=== PATIENT | male | born 1995 | race Caucasian/White ===

== ENCOUNTER → 2017-10-05 | Outpatient (CLI) | payer OTHER ==
[~2017-10-05] VITALS: Ht 170.2 cm; Wt 106.0 kg
[2017-10-05 15:33] VITALS: BP 135/81; PULSE 99; Ht 170.2 cm; Wt 106.0 kg
== END | disposition home or self-care (01) ==
LOC: C.NEUR 15:10
PROVIDERS: ATTEND Internal Medicine Pulmonary Disease
DX: R06.83 Snoring (principal); J34.2 Deviated nasal septum; R06.81 Apnea, not elsewhere classified

== ENCOUNTER → 2017-10-21 | Outpatient (CLI) | payer OTHER ==
--- NOTE | 2017-10-22 06:28 | PAP/PSG TECHNICIAN REPORT ---
[facility] [employer] Drawer Polysomnogram Report Study name: None Report date: 10/22/2017 Study date: 10/21/2017 Referring Physician: DR. CANO Name: JOLENE CURTIS Interpreting Physician: Efe Cano M.D. Date of : 1995 [employer] Drawer: Lucas Mackenzie RPSABBY. Sex: Male Age: 22 StudyType: PSG Weight: 233 lbs Height: 22 years, Height 5' 7" BMI: 36.49 Medications: NONE LISTED Patient History PATIENT HAS HSTORY OF DAYTIME SLEEPINESS, SNORING AND WITNESSED APNEAS. HE IS HERE FOR AN EVALUATION FOR PAULETTE. ESS = 6 RM 6 Parameters Monitored NPSG: E1-M2, E2-M1, Fp1-M2, Fp2-M1, F3-M2, F4-M2, F4-M1, C3-M2, C4-M2, C4-M1, O1-M2, O2-M2, O2-M1, T3-M2, T4-M1, P3-M2, P4-M1, CHIN1, CHIN2, HR, EKG, Legs, PFLOW, SNOR, FLOW, CFLOW, Tidal Volume, THOR, ABDO, SpO2, PLTH, CPRESS, ETCO2 Wave, ETCO2, pH Sleep Architecture Sleep Stages Time at Lights Off 10:36:55 PM STAGES Time (min.) TST (%) Time at Lights On 5:32:25 AM Wake 68.0 -- Total Recording Time (TRT) 416.00 min. N1 11.5 3 Total Sleep Period (TSP) 358.5 min. N2 202.0 58 Total Sleep Time (TST) 347.5min. N3 60.0 17 Awake Time 68.0 min. REM 74.0 21 Wake after Sleep Onset 11.0 min. Sleep Efficiency (SE) 84 % Sleep Onset Latency (KELSEY) 57.0 min. Number of Stage 1 Shifts None Awakenings 14 Stage Changes 56 Number of REM periods 2 REM 74.0 21 REM Latency 204.5 min. NREM 273.5 79 Body Position Analysis Supine Right Left Side Prone Vertical Total Sleep Time (min.) 239.7 74.8 96.9 171.69 0.0 0.0 Total Sleep Time (%) 51% 22% 28% 49 0% N/A% Total Sleep Time REM (min.) 31.0 0.0 43.0 None 0.0 0.0 Total Sleep Time NREM (min.) 144.8 74.8 53.9 None 0.0 0.0 Intermittent Wake (min.) 63.9 3.5 0.6 None 0.0 0.0 Total Sleep Period (%) 51% None None None None None Arousals Myoclonus (PLM) * Events Count Index Events Count Index Spontaneous 20 3 Events Awake (PLMW) 74 65.3 Respiratory 14 2.8 Events Asleep w/ Arousal (PLMA) 8 1.4 PLM 7 1 Events Asleep w/o Arousal (PLMS) 107 18.5 Snoring 0 0 Total Asleep 115 19.9 Total 41 7 Total 189 27 Respiratory Analysis * CA OA MA CH H RERA Total Count 0 68 0 0 187 1 255 Index 0.0 11.7 0.0 0 32.3 0 44.2 Mean Duration 0.0 29.3 0.0 0.00 24.2 15.3 25.5 Longest Duration 0.0 60.6 0.0 0.00 0.0 15.3 60.6 Respiratory Event Summary Total Supine ~Supine Right Left Prone REM NREM Apneas Count 68 20 48 0 48 N/A 49 19 Index 11.7 7 17 0.0 29.7 N/A 40 4 Hypopneas (4% Desat) Count 187 133 54 18 36 N/A 28 159 Index 32.3 45.4 19 14.4 22.3 N/A 22.7 34.9 Apneas & All Hypopneas Count 255 153 102 18 84 N/A 77 178 Index 44.0 52 36 14 52 N/A 62.4 39.0 Respiratory Events (Gas Fitter Apprentice+All Hyp+RERA) Count 255 153 103 19 84 N/A 77 178 Index 44.2 52 36 15.2 52.0 N/A 62.4 39.3 Respiratory Related Arousal Count 14 153 5 0 5 N/A 4 12 Index 2.8 4 2 0 3 N/A 3 3 Snoring Analysis Supine Right Left Prone REM NREM Total Snore duration 4.0 min Snores count 38 102 69 N/A 31 178 209 Snore mean duration 1.1 Sec Snores index 13 82 43 N/A 25.1 39.0 36.1 TST with snoring (%) 1.1% Desaturation Event Summary: Minimum %SpO2 Event Count Mean/Min/Max Duration(sec.) Desaturation Index % Time In Bed > 90 260 29.0 / 7.3 / 64.8 50.5 75.2 86 - 90 18 28.5 / 7.8 / 58.3 14.4 18.2 81 - 85 2 17.6 / 7.8 / 27.5 5.3 5.5 76 - 80 0 N/A 0.0 1.0 71 - 75 0 N/A 0.0 0.2 66 - 70 0 N/A 0.0 0.0 61 - 65 0 N/A 0.0 0.0 56 - 60 0 N/A 0.0 0.0 51 - 55 0 N/A 0.0 0.0 < 50 0 N/A 0.0 0.0 Total REM NREM Awake <50% 0.0 min. 0.0 min. 0.0 min. 0.0 min. 51 - 60% 0.0 min. 0.0 min. 0.0 min. 0.0 min. 61 - 70% 0.1 min. 0.1 min. 0.0 min. 0.0 min. 71 - 80% 4.7 min. 3.5 min. 1.0 min. 0.2 min. 81 - 90% 97.3 min. 24.1 min. 71.4 min. 1.8 min. 91 - 100% 309.2 min. 45.5 min. 199.7 min. 64.0 min. Average 92 91 92 95 Minimum SpO2 70 70 77 73 Desaturation Event Index 38.8 62.4 40.6 6.2 # Desat. Events below 89% 145 54 88 3 Time(%) with Saturation below 89% 15.6 4.6 10.7 0.3 Time(min.) with Saturation below 89% 64.0 18.8 44.0 1.2 Time (mins) REM (mins) NREM (mins) % of TST SpO2 Below 90% 211 68 N143 22.9 SpO2 Below 88% 71 0 0 15 Heart Rate Analysis Min (bpm) Max (bpm) Average (bpm) Awake 42 145 83 NREM 32 127 72 REM 51 127 67 Overall 32 127 71 Supplemental O2 Values Minimum O2 level: None Value Start Time End Time [employer] Drawer Comments Mr. Curtis slept in the right, left, supine and prone positions. No cardiac arrhythmia noted. Leg movements noted. No bruxism noted. Snoring was noted and scored as a 4 on a scale of 1 through 5. (0=no snoring, 5=snoring loud enough to be heard through a closed door or down the [address]) Mr. Curtis awoke to use the restroom 0 times during the night. Mr. Curtis stated I did not sleep as well as I do when I am in my own bed. The patient elected not to try CPAP at this time. The final report will be interpreted and signed by a sleep physician. The completed physician report will then be placed in the patient medical record. Therapy (cm H2O) 0 TIB (min.) 415.5 TST (min.) 347.5 Sleep Onset (min.) 57.0 REM Onset From Sleep (min.) 204.5 Sleep Efficiency % 84 Wakefulness (%) 16 Wakefulness (min.) 68.0 NREM 1 (%) 3 NREM 1 (min.) 11.5 NREM 2 (%) 58 NREM 2 (min.) 202.0 NREM 3 (%) 17 NREM 3 (min.) 60.0 REM (%) 21 REM (min.) 74.0 # Arousals 41 Arousal Index 7 # Snore 209 Snore Index 36.1 AHI 44.0 AHI Supine 52 AHI Non-Supine 36 NREM AHI 39.0 REM AHI 62.4 RDI 44.2 # Obstructive Apnea 68 # Central Apnea 0 # Mixed Apnea 0 # Hypopneas 187 RERAs 1 Total Respiratory Events 257 Time Below SpO2 89% (min.) 62.8 Mean NREM SpO2 (%) 92 Mean REM SpO2 (%) 91 Mean Sleep SpO2 (%) 92 Min NREM SpO2 (%) 77 Min REM SpO2 (%) 70 Position Supine (min.) 239.7 Position Non-supine (min.) 171.7 LM Index Sleep 19.9 LM Index NREM 10.3 LM Index REM 55.1 Mean Heart Rate (bpm) 71 Min Heart Rate (bpm) 32
--- NOTE | 2017-10-22 19:18 | POLYSOMNOGRAPH REPORT ---
CLINICAL DATA: A 22-year-old male with a BMI of 36.5, referred by myself, Dr. Arora and Dr. Otero for possible sleep apnea. He has had loud snoring and witnessed apnea. His [place] sleepiness score was 6/24. SLEEP ARCHITECTURE: Total sleep period was 358.5 minutes. Total sleep time was 347.5 minutes divided between 273.5 minutes of non-REM sleep and 74 minutes of REM sleep. Sleep onset latency was delayed at 57 minutes. REM latency was delayed at 204.5 minutes. Sleep efficiency was 84%. Wake after sleep onset was 11 minutes. Sleep consisted of stage N1 3%, stage N2 58%, stage N3 17%, and REM 21%. AROUSAL DATA: Forty one arousals were recorded for an index of 7 per hour. Fourteen were due to respiratory events. PERIODIC LIMB MOVEMENT DATA: Mildly elevated limb movements during sleep were noted. There were 152 limb movements during sleep noted for an index of 20 per hour with arousal index of 1.4 per hour. RESPIRATORY DATA: Severe sleep apnea was documented. The AHI was 44. There were 68 obstructive apneic episodes, the longest duration of which was 60.6 seconds. There were 187 hypopneic episodes with the mean duration of 24.2 seconds. OXIMETRY DATA: Nocturnal hypoxemia was seen. Oxygen lennox was 78% during REM. The mean saturation was 92%. Time below 88% was 71 minutes. ECHOCARDIOGRAM: Heart rates ranged from 32-127 beats per minute. No arrhythmias were noted. MEDICAL CONCIERGE'S COMMENTS: The patient slept in the right, left, supine, and prone positions. Snoring was loud, rated 4 on a scale of 1 through 5. The patient elected not to consider CPAP. IMPRESSION: Severe sleep apnea/hypopnea with an apnea/hypopnea index of 44 and a respiratory disturbance index of 44.2 with nocturnal hypoxemia. RECOMMENDATIONS: The patient will be considered for a repeat sleep study with CPAP or use of auto CPAP. Clinical correlation is needed. DUANE
== END | disposition home or self-care (01) ==
LOC: C.NEUR 20:00
PROVIDERS: ATTEND Internal Medicine Pulmonary Disease
DX: G47.30 Sleep apnea, unspecified (principal)

== ENCOUNTER → 2017-11-08 | Outpatient (CLI) | payer OTHER ==
--- NOTE | 2017-11-09 08:13 | PAP/PSG TECHNICIAN REPORT ---
[facility] Creative Director Polysomnogram Report Study name: None Report date: 11/09/2017 Study date: 11/08/2017 Referring Physician: DR. CANO Name: JOLENE CURTIS Interpreting Physician: Efe Cano M.D. Date of : 1995 Creative Director: Ching Cabrera, PSGT. Sex: Male Age: 22 StudyType: PSG Weight: 236 lbs Height: 22 years, Height 5' 7" Neck Circum:17 inches BMI: 36.96 Medications: NO REPORTED MEDICATIONS. Patient History 22-year-old male here for a titration study. Ahi =44.2. Parameters Monitored NPSG: E1-M2, E2-M1, Fp1-M2, Fp2-M1, F3-M2, F4-M2, F4-M1, C3-M2, C4-M2, C4-M1, O1-M2, O2-M2, O2-M1, T3-M2, T4-M1, P3-M2, P4-M1, CHIN1, CHIN2, HR, EKG, Legs, PFLOW, SNOR, FLOW, CFLOW, Tidal Volume, THOR, ABDO, SpO2, PLTH, CPRESS, ETCO2 Wave, ETCO2, pH Sleep Architecture Sleep Stages Time at Lights Off 10:35:38 PM STAGES Time (min.) TST (%) Time at Lights On 5:00:08 AM Wake 36.5 -- Total Recording Time (TRT) 385.00 min. N1 9.0 3 Total Sleep Period (TSP) 362.5 min. N2 144.0 41 Total Sleep Time (TST) 348.0min. N3 82.0 24 Awake Time 37.0 min. REM 113.0 32 Wake after Sleep Onset 14.5 min. Sleep Efficiency (SE) 91 % Sleep Onset Latency (KELSEY) 22.0 min. Number of Stage 1 Shifts None Awakenings 3 Stage Changes 23 Number of REM periods 4 REM 113.0 32 REM Latency 73.5 min. NREM 235.0 68 Body Position Analysis Supine Right Left Side Prone Vertical Total Sleep Time (min.) 120.5 165.1 82.5 247.63 0.0 4.2 Total Sleep Time (%) 29% 47% 24% 71 0% N/A% Total Sleep Time REM (min.) 42.0 47.5 23.5 None 0.0 0.0 Total Sleep Time NREM (min.) 58.4 117.6 59.0 None 0.0 0.0 Intermittent Wake (min.) 20.2 12.2 0.0 None 0.0 4.2 Total Sleep Period (%) 31% None None None None None Arousals Myoclonus (PLM) * Events Count Index Events Count Index Spontaneous 38 7 Events Awake (PLMW) 0 0.0 Respiratory 11 1.9 Events Asleep w/ Arousal (PLMA) 1 0.2 PLM 1 0 Events Asleep w/o Arousal (PLMS) 57 9.8 Snoring 0 0 Total Asleep 58 10.0 Total 50 9 Total 58 9 Respiratory Analysis * CA OA MA CH H RERA Total Count 2 2 0 0 20 0 24 Index 0.3 0.3 0.0 0 3.4 0 4.1 Mean Duration 24.2 19.0 0.0 0.00 16.8 0.0 17.6 Longest Duration 28.9 21.1 0.0 0.00 0.0 0.0 28.9 Respiratory Event Summary Total Supine ~Supine Right Left Prone REM NREM Apneas Count 4 3 1 1 0 N/A 0 4 Index 0.7 2 0 0.4 0.0 N/A 0 1 Hypopneas (4% Desat) Count 20 16 4 2 2 N/A 2 18 Index 3.4 9.6 1 0.7 1.5 N/A 1.1 4.6 Apneas & All Hypopneas Count 24 19 5 3 2 N/A 2 22 Index 4.1 11 1 1 1 N/A 1.1 5.6 Respiratory Events (Business Development Manager+All Hyp+RERA) Count 24 19 5 3 2 N/A 2 22 Index 4.1 11 1 1.1 1.5 N/A 1.1 5.6 Respiratory Related Arousal Count 11 19 3 1 2 N/A 1 10 Index 1.9 5 1 0 1 N/A 1 3 Snoring Analysis Supine Right Left Prone REM NREM Total Snore duration 0.3 min Snores count 4 1 2 N/A 2 5 7 Snore mean duration 2.3 Sec Snores index 2 0 1 N/A 1.1 1.3 1.2 TST with snoring (%) 0.1% Desaturation Event Summary: Minimum %SpO2 Event Count Mean/Min/Max Duration(sec.) Desaturation Index % Time In Bed > 90 37 26.8 / 13.3 / 58.5 5.9 98.9 86 - 90 0 N/A 0.0 1.1 81 - 85 0 N/A 0.0 0.0 76 - 80 0 N/A 0.0 0.0 71 - 75 0 N/A 0.0 0.0 66 - 70 0 N/A 0.0 0.0 61 - 65 0 N/A 0.0 0.0 56 - 60 0 N/A 0.0 0.0 51 - 55 0 N/A 0.0 0.0 < 50 0 N/A 0.0 0.0 Total REM NREM Awake <50% 0.0 min. 0.0 min. 0.0 min. 0.0 min. 51 - 60% 0.0 min. 0.0 min. 0.0 min. 0.0 min. 61 - 70% 0.0 min. 0.0 min. 0.0 min. 0.0 min. 71 - 80% 0.0 min. 0.0 min. 0.0 min. 0.0 min. 81 - 90% 4.2 min. 0.5 min. 3.2 min. 0.6 min. 91 - 100% 379.4 min. 112.5 min. 231.7 min. 35.2 min. Average 95 96 94 95 Minimum SpO2 85 89 85 88 Desaturation Event Index 5.8 4.2 7.4 0.0 # Desat. Events below 89% 6 N/A 6 0 Time(%) with Saturation below 89% 0.4 0.0 0.3 0.1 Time(min.) with Saturation below 89% 1.4 0.0 1.1 0.3 Heart Rate Analysis End Tidal CO2 Analysis Min (bpm) Max (bpm) Average (bpm) TSP (mins) % of TSP Awake 68 107 84 Above 55 mmHg 0.0 0.0 NREM 57 119 76 50-55 mmHg 0.0 0.0 REM 53 107 71 45-50 mmHg 348.0 100.0 Overall 53 119 75 40-45 mmHg 0.0 0.0 35-40 mmHg 0.0 0.0 30-35 mmHg 0.0 0.0 Average ETCO2 0.0 Supplemental O2 Values Minimum O2 level: None Value Start Time End Time Creative Director Comments PAP Study: slept in the right, left, and supine positions. No cardiac arrhythmia or PLM's noted. No bruxism noted. CPAP was initiated at +4 CMH2O and up-titrated to an optimal level of +8 CMH2O, which nearly eliminated all respiratory events and snoring. Res Med Dream wear nasal pillows, was used during titration awoke to use the restroom zero times during the night. Mr. Curtis stated, I did sleep as well as I do when I am in my own bed. The final report will be interpreted and signed by a sleep physician. The completed physician report will then be placed in the patient medical record. Therapy Event: Therapy (cm H20) 0 4 5 6 7 8 Total Time at Pressure (min.) 4.2 144.6 59.2 6.5 141.4 28.7 TST at Pressure (min.) 0.0 124.3 58.7 6.5 129.9 28.7 # Periods 1 1 1 1 1 1 Sleep Onset (min.) N/A 17.8 0.0 0.0 0.0 0.0 REM Onset (min.) N/A 91.3 4.2 N/A 29.1 0.0 Sleep Efficiency % 0 86 99 100 91 100 Wakefulness (%) 100.0 14.0 0.8 0.0 8.1 0.0 Wakefulness (min.) 4.2 20.3 0.5 0.0 11.5 0.0 NREM 1 (%) 0.0 4.2 1.7 0.0 1.4 0.0 NREM 1 (min.) 0.0 6.0 1.0 0.0 2.0 0.0 NREM 2 (%) 0.0 36.0 50.6 100.0 39.3 0.0 NREM 2 (min.) 0.0 52.0 29.9 6.5 55.6 0.0 NREM 3 (%) 0.0 42.7 7.1 0.0 11.3 0.0 NREM 3 (min.) 0.0 61.8 4.2 0.0 16.0 0.0 REM (%) 0.0 3.1 39.7 0.0 39.8 100.0 REM (min.) 0.0 4.5 23.5 0.0 56.3 28.7 # Arousals N/A 11 18 2 17 2 Arousal Index N/A 5.3 18.4 18.6 7.9 4.2 # Snore N/A 4 2 0 1 0 Snore Index N/A 1.9 2.0 0.0 0.5 0.0 AHI N/A 1.0 10.2 46.4 3.2 0.0 AHI Supine N/A 4.6 59.1 46.4 7.8 0.0 AHI Non-Supine N/A 0.0 2.4 N/A 1.8 N/A NREM AHI N/A 1.0 15.4 46.4 4.9 N/A REM AHI N/A 0.0 2.6 N/A 1.1 0.0 RDI N/A 1.0 10.2 46.4 3.2 0.0 # Obstructive N/A 0 0 0 2 0 # Central Ap N/A 0 2 0 0 0 # Mixed N/A 0 0 0 0 0 # Hypopneas N/A 2 8 5 5 0 RERAS N/A 0 0 0 0 0 Total Respiratory Events N/A 2 10 5 7 0 Time Below SpO2 89.00% (min.) 0.0 0.1 0.6 0.4 0.0 0.0 Mean NREM SpO2 (%) N/A 94 94 93 96 N/A Mean REM SpO2 (%) N/A 94 96 N/A 96 97 Mean Sleep SpO2 (%) N/A 94 95 93 96 97 Min NREM SpO2 (%) N/A 85 85 87 89 N/A Min REM SpO2 (%) N/A 91 89 N/A 93 93 Position Supine (min.) 0.0 26.2 8.1 6.5 30.9 28.7 Position Non-supine (min.) 0.0 98.1 50.5 0.0 99.0 0.0 LM Index Sleep N/A 6.3 19.4 9.3 6.0 25.1 LM Index NREM N/A 6.0 18.8 9.3 3.3 N/A LM Index REM N/A 13.3 20.4 N/A 9.6 25.1 Mean Heart Rate (bpm) N/A 81 77 74 70 65 Min Heart Rate (bpm) N/A 68 61 67 53 53
--- NOTE | 2017-11-12 15:08 | POLYSOMNOGRAPH REPORT ---
CLINICAL DATA: A 22-year-old male with BMI of 36.96 referred by myself and Dr. Arora for a CPAP titration study. He does have severe PAULETTE with an AHI of 44.2. SLEEP ARCHITECTURE: Total sleep period was 362.5 minutes. Total sleep time was 348 minutes divided between 235 minutes of non-REM sleep and 113 minutes of REM sleep. Sleep onset latency was 22 minutes. REM latency was 73.5 minutes. Sleep efficiency was 91%. Wake after sleep onset was 14.5 minutes. Sleep consisted of stage N1 3%, stage N2 41%, comes stage N3 24%, and REM 32%. AROUSAL DATA: Fifty arousals were recorded for an index of 9 per hour. Thirty eight were spontaneous. PLM DATA: Fifty eight limb movements during sleep were noted for an index of 10 per hour with arousal index of 0.2 per hour. RESPIRATORY DATA: The AHI was 4.1. There were 2 central and 2 obstructive apneic episodes. The longest apneic episode was 29 seconds. There were 20 hypopneic episodes with the mean duration of 16.8 seconds. OXIMETRY DATA: No significant hypoxemia was seen. Oxygen lennox was 85% during non-REM sleep. The mean saturation was 95%. Time below 89% was 1.4 minutes. ECHOCARDIOGRAM: Heart rates ranged from 57-119 beats per minute. No arrhythmias were noted. MDS COORDINATOR'S COMMENTS AND TREATMENT SUMMARY: The patient slept in the right, left, and supine positions. The patient used ResMed DreamWear nasal pillows and he was titrated up to 8 cm of water pressure. At his final pressure setting, he slept for 28.7 minutes with an AHI of 0. IMPRESSION: Severe sleep apnea/hypopnea corrected with CPAP 8 cm of water pressure ResMed DreamWear nasal pillows. RECOMMENDATIONS: The patient should be started on the above noted treatment regimen and seen back in followup within 90 days to document efficacy and compliance. [facility]
== END | disposition home or self-care (01) ==
LOC: C.NEUR 20:00
PROVIDERS: ATTEND Physician Assistant Medical
DX: G47.30 Sleep apnea, unspecified (principal)